=== PATIENT | female | born 1990 | race Two or more races ===

== ENCOUNTER 2017-03-28 14:43 | Emergency (ER) | payer OTHER ==
[2017-03-28 14:56] VITALS: PULSE 80; O2SAT 99
--- NOTE | 2017-03-28 15:58 | EDPHY ---
H & P Stated Complaint: R foot lac Time Seen by Provider: 03/28/17 15:57 HPI/ROS: HPI: This is a 26-year-old female who presents with Chief Complaint: Right foot laceration Location: Right foot Quality: Laceration Duration: Prior to arrival Signs and Symptoms: No bleeding, no radiation, no numbness, no weakness, no tingling, no incontinence, no decreased range of motion, no swelling, no pain Timing: Acute Severity: Mild Context: Patient presents from work with complaints of cutting the top of her right foot with a knife as she was moving a prior. She reports the knife was on the wall on a magnet. As she moved the [employer] she accidentally hit the knives and 1 fell off and hit the top of her foot causing a laceration. She applied direct pressure. Denies paresthesias/decreased range of motion/skin color changes. Unsure of last tetanus booster. LMP 2-3 weeks ago. Modifying Factors: Direct pressure with moderate relief Comment: ROS: see HPI Constitutional: No fever, no chills, no weight loss Eyes: No blurred vision Respiratory: No shortness of breath, no cough Cardiovascular: No chest pain Gastrointestinal: No nausea, no vomiting no diarrhea Genitourinary: No dysuria Extremities: No myalgias Neurologic: No weakness, no numbness Skin: No rashes Hematologic: No bruising, no bleeding MEDICAL/SURGICAL/SOCIAL HISTORY: Medical history: Generally healthy. Does not take any regular medications. Surgical history: Denies Social history: Employed at [employer]. CONSTITUTIONAL: Extremely well-appearing adult female, awake and alert , no obvious distress HEENT: Atraumatic and normocephalic. NECK: supple, no midline tenderness Cardiovascular: Normal S1/S2, regular rate, regular rhythm, without murmur rub or gallop. PULMONARY/CHEST: Symmetrical and nontender. no crepitus. Clear to auscultation bilaterally. Good air movement. No accessory muscle usage. ABDOMEN: Soft, nondistended, nontender, no ecchymosis. EXTREMITIES: 2/2 DP and PT pulses, strength 5/5, Right Ankle: Plantar flexion to 50, dorsiflexion to 20. Foot inversion to 35 degree. No tenderness/ swelling Anterior talofibular ligament. No tenderness/swelling Calcaneofibular ligament, no tenderness/swelling posterior talofibular ligament, no tenderness/ swelling posterior inferior tibiofibular ligament. Achilles tendon intact. right foot: .5 cm superficial, simple, linear, horizontal laceration at the top of her foot. DIP/PIP/MCP flexion/extension intact with good light touch sensation. no deformities, no clubbing, no cyanosis or edema. NEUROLOGICAL: no focal neuro deficits. GCS 15. Light touch sensation intact. SKIN: Warm and dry, no erythema. no rash. Good capillary refill. Source: Patient Exam Limitations: No limitations - Personal History LMP (Females 10-55): 22-28 Days Ago Current Tetanus/Diphtheria Vaccine: Unsure Current Tetanus Diphtheria and Acellular Pertussis (TDAP): Unsure - Medical/Surgical History Hx Asthma: No Hx Chronic Respiratory Disease: No Hx Diabetes: No Hx Cardiac Disease: No Hx Renal Disease: No Hx Cirrhosis: No Hx Alcoholism: No Hx HIV/AIDS: No Hx Splenectomy or Spleen Trauma: No Other PMH: denies - Social History Smoking Status: Never smoked Constitutional: Initial Vital Signs Temperature (C) 36.8 C 03/28/17 14:52 Heart Rate 80 03/28/17 14:52 Respiratory Rate 16 03/28/17 14:52 Blood Pressure 118/75 03/28/17 14:52 O2 Sat (%) 99 03/28/17 14:52 O2 Delivery Mode Room Air Allergies/Adverse Reactions: No Known Allergies Allergy (Unverified 03/28/17 14:52) Home Medications: Medication Instructions Recorded NK [No Known Home Meds] 03/28/17 Medical Decision Making Procedures: Procedure: Laceration repair. Verbal consent was obtained from the patient. The .5 cm superficial, simple, linear, horizontal laceration at the top of her foot was anesthetized in the usual fashion using 4 mL of 1% lidocaine with epinephrine. The wound was irrigated, draped and explored to its base with a gloved finger. There were no deep structures involved. No tendon injury was identified. The wound was repaired with #2, 5 0 Prolene in a simple interrupted pattern. Good hemostasis was achieved and patient tolerated procedure well. Clean sterile dressing applied. The procedure was performed by myself. ED Course/Re-evaluation: Wound and laceration repair Tetanus booster given X-ray not indicated as no concern for fracture/foreign body No signs of neurovascular compromise/tenting of skin/compartment syndrome/ extremities and joints examined above and below area of concern and are neurovascularly intact. verbal and written wound care instructions provided This patient was seen under the supervision of my secondary supervising physician. I evaluated care for this patient independently. Differential Diagnosis: Differential diagnosis includes but is not limited to tendon injury, nerve injury, foreign body, laceration. Departure - Departure Disposition: Home, Routine, Self-Care Clinical Impression: Laceration of right foot excluding toes without complication Qualifiers: Encounter type: initial encounter Qualified Code(s): S91.311A - Laceration without foreign body, right foot, initial encounter Condition: Good Instructions: Laceration (ED), Care For Your Stitches (ED) Additional Instructions: Keep the dressing dry and in place for 48 hours. After 48 hours, you may remove the dressing; wash the site daily with mild soap and water; then pat dry. Take Tylenol 650 mg every 4 hours and/or Ibuprofen 600 mg every 8 hours with food as needed for pain. Please return to the emergency room in 7-10 days to have your sutures removed. Referrals: [facility],. [Clinic] - As per Instructions
[2017-03-28] MEDS ORDERED: TDAP ADULT 0.5 ML INJ (BOOSTRIX) IM ONE (16:08)
[2017-03-28 16:54] VITALS: BP 113/70; RESP 18; TEMP 98.1
== END 2017-03-28 17:10 | disposition home or self-care (01) ==
PROC: 0HQMXZZ Repair Right Foot Skin, External Approach (ICD-10-PCS; principal; 2017-03-28)
DX: S91.311A Laceration without foreign body, right foot, initial encounter (principal); Z23 Encounter for immunization; W26.0XXA Contact with knife, initial encounter; Y92.69 Other specified industrial and construction area as the place of occurrence of the external cause; Y99.0 Civilian activity done for income or pay; Y93.89 Activity, other specified